=== PATIENT | male | born 1960 | race Caucasian/White ===

== ENCOUNTER 2016-08-02 15:02 | Inpatient (IN) | payer SELFPAY ==
[2016-08-02] VITALS (8 sets, daily range): BP systolic 100–116; BP diastolic 56–68
[~2016-08-02] VITALS: Ht 190.5 cm; Wt 126.0 kg
[~2016-08-02 15:02] MED LIST: AVODART0.5 MG PO; BACTRIM DS1 TAB OR; CIPRO500 MG OR; EFFEXOR75 MG PO; FLOMAX0.4 MG OR; KEFLEX500 MG OR; PERCOCET 5/325M1 TAB OR; PYRIDIUM200 MG OR; SYNTHROID50 MCG PO; TERAZOSIN1 MG PO
--- NOTE | 2016-08-02 15:23 | NUR ---
PT TO ROOM 12 VIA EMS STRETCHER, PT AWAKE, ALERT AND ORIENTED X 3. DR RUSSELL TO BEDSIDE
[2016-08-02] MEDS ORDERED: TAMSULOSIN0.4 MG PO (15:35)
[2016-08-02] MEDS ORDERED: FINASTERIDE5 MG PO (15:35)
[2016-08-02 15:36] LABS: HEMOGLOBIN 13.5 g/dl (14.0-18.0); IMMATURE GRANULOCYTES 0.2 % (0.0-1.0); MEAN CORPUSCULAR HGB CONC 33.8 g/L CALC (32.0-36.0); NEUT# 2.98 thou/uL (1.82-7.42); RED BLOOD COUNT 4.35 mill/uL (4.70-6.10); RED CELL DISTRI WIDTH 13.6 % (11.5-15.5)
[2016-08-02] MEDS ORDERED: PROZAC10 MG PO (15:37)
[2016-08-02] MEDS ORDERED: LISINOPRIL5 MG PO (15:39)
[2016-08-02] MEDS ORDERED: METFORMIN500 MG PO (15:40)
[2016-08-02 16:16] LABS: ALKALINE PHOSPHATASE 44 u/l (38-126); ANION GAP 14 (6-22 (CALC)); BILIRUBIN, TOTAL 0.9 mg/dL (0.0-1.4); BUN 14 mg/dL (9-20); BUN/CREATININE RATIO 19 (12-20 (CALC)); CALCIUM 8.6 mg/dL (8.4-10.2); CARBON DIOXIDE 26 mmol/l (22-30); CHLORIDE 104 mmol/l (95-108); CREATININE 0.7 mg/dL (0.7-1.3); GFR > 60 ML/MIN (>=60 (CALC)); GFR FOR AFR.AMER. > 60 ML/MIN (>=60 (CALC)); GLUCOSE 181 mg/dL (75-110); SGOT/AST 20 u/l (17-59); SGPT/ALT 34 u/l (21-72); SODIUM 140 mmol/l (137-146); TOTAL PROTEIN 6.7 g/dL (6.3-8.2)
[2016-08-02 16:27] LABS: MYOGLOBIN 26 ng/mL (0 - 121)
--- NOTE | 2016-08-02 17:01 | NUR ---
PT UPDATED ON FINDINGS KNOWN THUS FAR. PT DENIES DIZZINESS.
[2016-08-02 17:20] LABS: URINE BILIRUBIN - DIPSTICK NEGATIVE (NEGATIVE); URINE BLOOD DIPSTICK NEGATIVE (NEGATIVE); URINE CLARITY CLEAR; URINE COLOR YELLOW; URINE GLUCOSE - DIPSTICK NEGATIVE (NEGATIVE); URINE KETONE NEGATIVE (NEGATIVE); URINE LEUK ESTERASE NEGATIVE (NEGATIVE); URINE NITRITE - DIPSTICK NEGATIVE (Negative); URINE PROTEIN - DIPSTICK TRACE mg/dL (NEG-TRACE)
[2016-08-02 17:24] LABS: BARBITURATES NEGATIVE (NEGATIVE); COCAINE NEGATIVE (NEGATIVE); METHADONE NEGATIVE (NEGATIVE); OXCYCODONE NEGATIVE (NEGATIVE); TETRAHYDROCANNABIONOL NEGATIVE (NEGATIVE); TRICYLIC ANTIDEPRESSANTS NEGATIVE (NEGATIVE)
--- NOTE | 2016-08-02 18:20 | NUR ---
rec'd from er to icu6.
--- NOTE | 2016-08-02 18:20 | NUR ---
RECEIVED PT FROM ER VIA STRETCHER. PT AMBULATED TO BEDSIDE SCALE, THEN AMBULATED TO BED. PT ALERT AND ORIENTED. SKIN WARM. NO RESP. DISTRESS NOTED. ROOM ARRANGEMENT DISCUSSSED. CALL LIGHT WITHIN REACH.
--- NOTE | 2016-08-02 18:28 | NUR ---
PT TAKEN TO ICU-6, REPORT GIVEN TO EDWINA.
--- NOTE | 2016-08-02 19:00 | NUR ---
awake. denies c/o. monitor car operator shows sinus jolene hr 49. #20 lac rl began @ [id number] as ordered. history obtained per pt & er record. oriented to room. fall precautions cont.
--- NOTE | 2016-08-02 21:10 | NUR ---
dr palacio called this commercial real estate underwriter. updated on pts condition. no new orders.
--- NOTE | 2016-08-02 22:00 | NUR ---
awake. watching tv. monitor shows sinus jolene hr 56. snack given per request.
[2016-08-03 00:01] VITALS: BP 123/72
--- NOTE | 2016-08-03 00:01 | NUR ---
eyes closed. no resp distress. monitor shows sinus jolene.
[2016-08-03 02:00] VITALS: BP 101/62
--- NOTE | 2016-08-03 02:00 | NUR ---
resting quietly. resps even & unlabored. monitor shows sinus jolene.
[2016-08-03 04:00] VITALS: BP 113/64
--- NOTE | 2016-08-03 04:00 | NUR ---
eyes closed. no distress. monitor shows sinus [id number]. has voided well this shift.
--- NOTE | 2016-08-03 05:30 | NUR ---
lab here. blood drawn.
[2016-08-03 06:00] VITALS: BP 141/80
--- NOTE | 2016-08-03 06:00 | NUR ---
awake. denies c/o. monitoring specialist shows sinus jolene.
[2016-08-03 06:32] LABS: HEMATOCRIT 36.6 % (39.0-50.0); HEMOGLOBIN 12.2 g/dl (14.0-18.0); MEAN CELL VOLUME 92.9 fL CALC (80.0-100.0); MEAN CORPUSCULAR HGB CONC 33.3 g/L CALC (32.0-36.0); RED BLOOD COUNT 3.94 mill/uL (4.70-6.10); RED CELL DISTRI WIDTH 13.9 % (11.5-15.5)
[2016-08-03 06:36] LABS: ANION GAP 12 (6-22 (CALC)); BUN 11 mg/dL (9-20); BUN/CREATININE RATIO 17 (12-20 (CALC)); CALCIUM 8.7 mg/dL (8.4-10.2); CARBON DIOXIDE 25 mmol/l (22-30); CHLORIDE 107 mmol/l (95-108); CREATININE 0.7 mg/dL (0.7-1.3); GFR > 60 ML/MIN (>=60 (CALC)); GFR FOR AFR.AMER. > 60 ML/MIN (>=60 (CALC)); GLUCOSE 88 mg/dL (75-110); MAGNESIUM 1.8 mg/dL (1.6-2.3); POTASSIUM 4.4 mmol/l (3.5-5.1); SODIUM 141 mmol/l (137-146)
--- NOTE | 2016-08-03 07:36 | NUR ---
PATIENT IS SITTING UP IN BED WATCHING TV. ASSESSMENT COMPLETED AT THIS TIME. RESP EVEN AND UNLABORED. NO S/S OF DISTRESS NOTED. PATIENT DENIES ANY NEEDS OR PAIN. CALL LIGHT IN REACH. ENCOURAGED TO CALL FOR ANY NEEDS OR PAIN.
[2016-08-03 08:00] VITALS: BP 134/80
[2016-08-03 10:00] VITALS: BP 125/78
--- NOTE | 2016-08-03 10:00 | NUR ---
PATIENT IN BED. RESP EVEN AND UNLABORED. NO S/S OF DISTRESS NOTED. PATIENT DENIES ANY NEEDS OR PAIN. CALL LIGHT IN REACH. ENCOURAGED TO CALL FOR ANY NEEDS.
--- NOTE | 2016-08-03 11:42 | NUR ---
Discharge instructions given. Patient verbalizes understanding of same. Discharged in stable condition via Wheelchair to Home with family. All belongings sent with pt.
== END 2016-08-03 11:40 | disposition home or self-care (01) | DRG 645 ==
LOC: ENPENDDIS → ED 15:02 → ED-I 17:38 → ED 17:51 → ICU 17:52
PROVIDERS: Emergency Medicine; ADMIT Internal Medicine; ATTEND Internal Medicine
DX: E03.9 Hypothyroidism, unspecified (principal); D69.6 Thrombocytopenia, unspecified; I95.9 Hypotension, unspecified; R00.1 Bradycardia, unspecified; N40.0 Benign prostatic hyperplasia without lower urinary tract symptoms; I10 Essential (primary) hypertension; E11.9 Type 2 diabetes mellitus without complications; F32.9 Major depressive disorder, single episode, unspecified; Z82.49 Family history of ischemic heart disease and other diseases of the circulatory system; Z91.14 Patient's other noncompliance with medication regimen; Z79.84 Long term (current) use of oral hypoglycemic drugs

== ENCOUNTER 2016-08-23 09:16 | Emergency (ER) | payer SELFPAY ==
[~2016-08-23] VITALS: Ht 190.5 cm; Wt 130.0 kg
[~2016-08-23 09:16] MED LIST changes: +FINASTERIDE5 MG PO; +LISINOPRIL5 MG PO; +METFORMIN500 MG PO; +PROZAC10 MG PO; +TAMSULOSIN0.4 MG PO
[2016-08-23] MEDS ORDERED: BACTRIM DS1 TAB PO (09:43)
[2016-08-23 10:16] LABS: URINE BILIRUBIN - DIPSTICK NEGATIVE (NEGATIVE); URINE BLOOD DIPSTICK SMALL (NEGATIVE); URINE CLARITY CLEAR; URINE GLUCOSE - DIPSTICK 100 mg/dL (NEGATIVE); URINE KETONE NEGATIVE (NEGATIVE); URINE LEUK ESTERASE NEGATIVE (Negative); URINE NITRITE - DIPSTICK POSITIVE (Negative); URINE PROTEIN - DIPSTICK 100 mg/dL (NEG-TRACE); URINE SPECIFIC GRAVITY 1.015; URINE UROBILINOGEN - DIPSTICK >=8.0 E.U./dL (0.2)
[2016-08-23 10:21] LABS: URINE COLOR DK. YELLOW
[2016-08-23 10:26] VITALS: BP 109/74
== END 2016-08-23 10:26 | disposition home or self-care (01) | DRG 726 ==
LOC: ED 09:16
PROVIDERS: Emergency Medicine
PROC: 0T9B70Z Drainage of Bladder with Drainage Device, Via Natural or Artificial Opening (ICD-10-PCS; principal; 2016-08-23)
DX: N40.1 Benign prostatic hyperplasia with lower urinary tract symptoms (principal); I10 Essential (primary) hypertension; N39.0 Urinary tract infection, site not specified; E11.9 Type 2 diabetes mellitus without complications; R33.8 Other retention of urine; F41.9 Anxiety disorder, unspecified; F32.9 Major depressive disorder, single episode, unspecified; E03.9 Hypothyroidism, unspecified

== ENCOUNTER 2017-05-12 11:49 | Emergency (ER) | payer BC ==
[~2017-05-12] VITALS: Ht 190.5 cm; Wt 155.0 kg
[~2017-05-12 11:49] MED LIST changes: +BACTRIM DS1 TAB PO
[2017-05-12 12:00] VITALS: BP 147/88
[2017-05-12] MEDS ORDERED: MOTRIN400 MG PO (12:08)
[2017-05-12] MEDS ORDERED: AUGMENTIN875TAB PO (12:08)
== END 2017-05-12 12:15 | disposition home or self-care (01) | DRG 159 ==
LOC: ED 11:49
DX: K03.81 Cracked tooth (principal); E03.9 Hypothyroidism, unspecified; I10 Essential (primary) hypertension; E11.9 Type 2 diabetes mellitus without complications; N40.0 Benign prostatic hyperplasia without lower urinary tract symptoms

== ENCOUNTER 2019-07-28 23:02 | Emergency (ER) | payer OTHER ==
[~2019-07-28 23:02] MED LIST changes: +AUGMENTIN875TAB PO; +MOTRIN400 MG PO
[2019-07-29 00:49] VITALS: BP 118/66
== END 2019-07-28 23:55 | disposition home or self-care (01) | DRG 605 ==
LOC: ED 23:02
PROC: 0HQ0XZZ Repair Scalp Skin, External Approach (ICD-10-PCS; principal; 2019-07-28)
DX: S01.01XA Laceration without foreign body of scalp, initial encounter (principal); I10 Essential (primary) hypertension; E11.9 Type 2 diabetes mellitus without complications; E03.9 Hypothyroidism, unspecified; W01.198A Fall on same level from slipping, tripping and stumbling with subsequent striking against other object, initial encounter; Y92.89 Other specified places as the place of occurrence of the external cause; Y99.0 Civilian activity done for income or pay; Z79.84 Long term (current) use of oral hypoglycemic drugs

== ENCOUNTER 2019-08-02 15:51 | Emergency (ER) | payer OTHER ==
[~2019-08-02] VITALS: Ht 190.5 cm; Wt 154.5 kg
[2019-08-02] MEDS ORDERED: ZOFRAN4 MG/TAB PO (17:04)
[2019-08-02 17:11] VITALS: BP 131/71
== END 2019-08-02 17:54 | disposition home or self-care (01) | DRG 950 ==
LOC: ED 15:51
DX: S01.91XD Laceration without foreign body of unspecified part of head, subsequent encounter (principal); S06.0X9D Concussion with loss of consciousness of unspecified duration, subsequent encounter; S16.1XXD Strain of muscle, fascia and tendon at neck level, subsequent encounter; X58.XXXD Exposure to other specified factors, subsequent encounter

== ENCOUNTER 2020-05-08 05:40 | Emergency (ER) | payer SELFPAY ==
[~2020-05-08] VITALS: Ht 190.5 cm; Wt 198.0 kg
[~2020-05-08 05:40] MED LIST changes: +ZOFRAN4 MG/TAB PO
[2020-05-08 06:20] LABS: IMMATURE GRANULOCYTES 0.5 % (0.0-5.0); MEAN CELL VOLUME 92.9 fL CALC (80.0-100.0); MEAN CORPUSCULAR HGB 29.8 pG CALC (26.0-32.0); MEAN CORPUSCULAR HGB CONC 32.1 g/dL CAL (32.0-36.0); NEUT# 4.96 thou/uL (1.82-7.42); RED BLOOD COUNT 5.04 mill/uL (4.70-6.10); RED CELL DISTRI WIDTH 13.4 % (11.5-15.5)
[2020-05-08 06:21] LABS: HEMATOCRIT 46.8 % (39.0-50.0)
[2020-05-08 06:22] LABS: URINE BILIRUBIN - DIPSTICK NEGATIVE (NEGATIVE); URINE BLOOD DIPSTICK MODERATE (NEGATIVE); URINE COLOR YELLOW; URINE GLUCOSE - DIPSTICK >=1000 mg/dL (NEGATIVE); URINE KETONE NEGATIVE (NEGATIVE); URINE PROTEIN - DIPSTICK 100 mg/dL (NEG-TRACE); URINE SPECIFIC GRAVITY 1.025; URINE UROBILINOGEN - DIPSTICK 0.2 E.U./dL (0.2)
[2020-05-08 06:29] LABS: URINE LEUK ESTERASE SMALL (NEGATIVE)
[2020-05-08 06:30] LABS: URINE NITRITE - DIPSTICK NEGATIVE (Negative)
[2020-05-08 06:32] LABS: URINE BACTERIA MODERATE hpf; URINE EPITHELIAL CELLS FEW EPI/hpf (0-FEW); URINE WBC 20-50 WBC/hpf (0-5)
[2020-05-08 06:42] LABS: ALBUMIN 4.6 g/dL (3.2-5.0); BILIRUBIN, TOTAL 0.6 mg/dL (0.0-1.4); BUN 18 mg/dL (8-23); BUN/CREATININE RATIO 24 (12-20 (CALC)); CARBON DIOXIDE 25 mmol/l (22-30); CHLORIDE 98 mmol/l (95-108); CREATININE 0.7 mg/dL (0.7-1.3); GFR > 60 ML/MIN (>=60 (CALC)); GFR FOR AFR.AMER. > 60 ML/MIN (>=60 (CALC)); POTASSIUM 4.7 mmol/l (3.5-5.1); TOTAL PROTEIN 7.6 g/dL (6.3-8.2)
[2020-05-08 06:48] LABS: ALKALINE PHOSPHATASE 95 u/l (38-126); ANION GAP 15 (6-22 (CALC)); SGOT/AST 48 u/l (19-48); SODIUM 133 mmol/l (137-146)
[2020-05-08] MEDS ORDERED: CIPROFLOXACN500 MG PO (07:24)
[2020-05-08 08:23] VITALS: BP 143/78
== END 2020-05-08 08:33 | disposition home or self-care (01) | DRG 690 ==
LOC: ED 05:40
PROVIDERS: Emergency Medicine
DX: N39.0 Urinary tract infection, site not specified (principal); E11.65 Type 2 diabetes mellitus with hyperglycemia; I10 Essential (primary) hypertension; E03.9 Hypothyroidism, unspecified; F41.9 Anxiety disorder, unspecified; F32.9 Major depressive disorder, single episode, unspecified; N40.0 Benign prostatic hyperplasia without lower urinary tract symptoms; B96.89 Other specified bacterial agents as the cause of diseases classified elsewhere; Z79.84 Long term (current) use of oral hypoglycemic drugs; Z20.822 Contact with and (suspected) exposure to COVID-19

== ENCOUNTER 2021-09-15 11:18 | Emergency (ER) | payer OTHER ==
[~2021-09-15] VITALS: Ht 190.5 cm; Wt 109.1 kg
[2021-09-15] VITALS (7 sets, daily range): BP systolic 111–136; BP diastolic 63–74
[~2021-09-15 11:18] MED LIST changes: +CIPROFLOXACN500 MG PO
[2021-09-15 12:15] LABS: URINE BILIRUBIN - DIPSTICK NEGATIVE (NEGATIVE); URINE BLOOD DIPSTICK LARGE (NEGATIVE); URINE COLOR YELLOW; URINE GLUCOSE - DIPSTICK NEGATIVE (NEGATIVE); URINE KETONE TRACE mg/dL (NEGATIVE); URINE PH 6.5 (4.5-8.0); URINE PROTEIN - DIPSTICK 100 mg/dL (NEG-TRACE); URINE SPECIFIC GRAVITY 1.025; URINE UROBILINOGEN - DIPSTICK 0.2 E.U./dL (0.2)
[2021-09-15 12:20] LABS: URINE BACTERIA MODERATE hpf; URINE EPITHELIAL CELLS FEW EPI/hpf (0-FEW); URINE LEUK ESTERASE LARGE (NEGATIVE); URINE NITRITE - DIPSTICK POSITIVE (Negative); URINE RBC 50-100 RBC/hpf (0-5); URINE WBC >100 WBC/hpf (0-5)
[2021-09-15 12:23] LABS: GFR FOR AFR.AMER. > 60 ML/MIN (>=60 (CALC)); GFR OTHER RACES > 60 ML/MIN (>=60 (CALC))
[2021-09-15 12:28] LABS: IMMATURE GRANULOCYTES 0.2 % (0.0-5.0); MEAN CELL VOLUME 98.4 fL CALC (80.0-100.0); MEAN CORPUSCULAR HGB 31.7 pG CALC (26.0-32.0); MEAN CORPUSCULAR HGB CONC 32.2 g/dL CAL (32.0-36.0); NEUT# 3.11 thou/uL (1.82-7.42); RED BLOOD COUNT 3.72 mill/uL (4.70-6.10); RED CELL DISTRI WIDTH 15.4 % (11.5-15.5)
[2021-09-15 12:29] LABS: HEMATOCRIT 36.6 % (39.0-50.0); HEMOGLOBIN 11.8 g/dl (14.0-18.0)
[2021-09-15 12:47] LABS: ALBUMIN 3.5 g/dL (3.2-5.0); ALKALINE PHOSPHATASE 70 u/l (38-126); ANION GAP 11 (6-22 (CALC)); BILIRUBIN, TOTAL 0.6 mg/dL (0.0-1.4); BUN 10 mg/dL (8-23); BUN/CREATININE RATIO 9 (12-20 (CALC)); CARBON DIOXIDE 19 mmol/l (22-30); CHLORIDE 111 mmol/l (95-108); CREATININE 1.1 mg/dL (0.7-1.3); GFR FOR AFR.AMER. > 60 ML/MIN (>=60 (CALC)); GFR OTHER RACES > 60 ML/MIN (>=60 (CALC)); POTASSIUM 3.4 mmol/l (3.5-5.1); SGOT/AST 17 u/l (19-48); SODIUM 138 mmol/l (137-146); TOTAL PROTEIN 6.3 g/dL (6.3-8.2)
[2021-09-15] MEDS ORDERED: BUSPIRONE HYDRO15 MG PO (14:47)
[2021-09-15] MEDS ORDERED: OMNI-PAC300 MG PO (15:08)
== END 2021-09-15 16:00 | disposition home or self-care (01) | DRG 690 ==
LOC: ED 11:18
PROVIDERS: Family Medicine
DX: N39.0 Urinary tract infection, site not specified (principal); N28.89 Other specified disorders of kidney and ureter; I10 Essential (primary) hypertension; N40.1 Benign prostatic hyperplasia with lower urinary tract symptoms; R33.8 Other retention of urine; E11.9 Type 2 diabetes mellitus without complications; E03.9 Hypothyroidism, unspecified; F41.9 Anxiety disorder, unspecified; F32.A Depression, unspecified; B96.4 Proteus (mirabilis) (morganii) as the cause of diseases classified elsewhere; Z79.84 Long term (current) use of oral hypoglycemic drugs
CPT/HCPCS: Q9967

== ENCOUNTER 2022-03-24 06:34 | Day surgery (SDC) | payer OTHER ==
[~2022-03-24] VITALS: Ht 190.5 cm; Wt 137.0 kg
[~2022-03-24 06:34] MED LIST changes: +BUSPIRONE HYDRO15 MG PO; +OMNI-PAC300 MG PO
[2022-03-24] MEDS ORDERED: NEURONTIN300 MG PO (08:12)
[2022-03-24] MEDS ORDERED: MAXZIDE-25MG1 COMBO PO (08:13)
[2022-03-24] MEDS ORDERED: MULTI VIT PO (08:14)
[2022-03-24] MEDS ORDERED: CRANBERR3 PO (08:14)
[2022-03-24] MEDS ORDERED: DICLOFENAC35 MG PO (08:15)
[2022-03-24 11:30] VITALS: BP 120/95
== END 2022-03-24 12:35 | disposition home or self-care (01) | DRG 664 ==
LOC: ORM 06:34
PROVIDERS: ATTEND Urology
PROC: 0TBB8ZX Excision of Bladder, Via Natural or Artificial Opening Endoscopic, Diagnostic (ICD-10-PCS; principal; 2022-03-24)
PROC: 0W3R8ZZ Control Bleeding in Genitourinary Tract, Via Natural or Artificial Opening Endoscopic (ICD-10-PCS; 2022-03-24)
PROC: 0T7D8ZZ Dilation of Urethra, Via Natural or Artificial Opening Endoscopic (ICD-10-PCS; 2022-03-24)
DX: N30.21 Other chronic cystitis with hematuria (principal); N35.919 Unspecified urethral stricture, male, unspecified site; N42.89 Other specified disorders of prostate; N40.1 Benign prostatic hyperplasia with lower urinary tract symptoms; N13.8 Other obstructive and reflux uropathy; N28.89 Other specified disorders of kidney and ureter; E03.9 Hypothyroidism, unspecified; E11.42 Type 2 diabetes mellitus with diabetic polyneuropathy; F32.A Depression, unspecified; F41.9 Anxiety disorder, unspecified; I10 Essential (primary) hypertension; E66.9 Obesity, unspecified; Z79.84 Long term (current) use of oral hypoglycemic drugs
CPT/HCPCS: J0131; J1956